=== PATIENT | male | born 1970 | race Caucasian/White ===

== ENCOUNTER 2019-06-25 22:48 | Observation (INO) ==
[2019-06-25] MEDS ORDERED: 0.9 % Sodium Chloride 1,000 ML IVC ONE (23:11)
[2019-06-25] MEDS ORDERED: Isovue-370 500 ML BOTTLE IVP ONE (23:11)
[2019-06-25] MEDS ORDERED: Ondansetron 4 MG/2 ML VIAL IVP ONE (23:11)
[2019-06-25 23:45] LABS: Basophils % 0.5 %; Hematocrit 34.7 % (37.5-50.1); Hemoglobin 12.6 g/dL (12.9-16.9); Lymphocytes # 0.5 K/mcL (0.6-4.6); Lymphocytes % 12.5 %; Mean Corpuscular HGB Conc 36.3 g/dL (31.6-35.5); Mean Corpuscular Hemoglobin 31.1 pg (28.0-33.3); Mean Corpuscular Volume 85.7 fL (83.0-100.0); Mean Platelet Volume 9.5 fL (9.4-12.4); Monocytes # 0.9 K/mcL (0.0-1.3); Monocytes % 21.7 %; Neutrophils # 2.5 K/mcL (1.6-8.9); Platelet Count 120 K/mcL (140-400); Red Blood Count 4.05 M/mcL (4.19-5.50); Red Cell Distribution Width 13.8 % (11.5-14.5); Segmented Neutrophils % 64.3 %; White Blood Count 3.9 K/mcL (4.3-11.1)
[2019-06-26 00:16] LABS: Platelet Estimate Normal (Normal)
[2019-06-26 00:27] LABS: Alanine Aminotransferase 18 Units/L (7-52); Albumin 4.1 g/dL (3.5-5.7); Albumin/Globulin Ratio 1.6 (1.1-2.2); Alkaline Phosphatase 73 Units/L (34-104); Aspartate Amino Transferase 17 Units/L (13-39); BUN/Creatinine Ratio 25 (6-26); Bilirubin,Total 0.5 mg/dL (0.3-1.0); Blood Urea Nitrogen 18 mg/dL (6-20); Calcium 9.4 mg/dL (8.6-10.3); Carbon Dioxide 24 mEq/L (23-29); Chloride 101 mEq/L (98-107); Globulin 2.6 g/dL (2.4-3.5); Glucose 124 mg/dL (70-105); Lipase 19 Units/L (11-82); Osmolality,Calculated 281 (280-300); Potassium 4.2 mEq/L (3.5-5.1); Sodium 134 mEq/L (136-145); Total Protein 6.7 g/dL (6.4-8.9); eGFR For African Americans > 60 (> 60); eGFR For Non-African Americans > 60 (> 60)
[2019-06-26 00:41] LABS: Bilirubin,Urine Negative (Negative); Blood,Urine Negative (Negative); Clarity,Urine Clear (Clear); Color,Urine Dark Yellow (Yellow); Glucose,Urine (UA) Normal (Normal); Ketones,Urine Trace mg/dL (Negative); Leukocyte Esterase,Urine Negative (Negative); Nitrite,Urine Negative (Negative); PH,Urine 5.5 pH Units (5.0-8.0); Protein,Urine Trace mg/dL (Neg-Trace); Specific Gravity,Urine > 1.030 (1.010-1.025); Urobilinogen,Urine Normal (Normal)
[2019-06-26] MEDS ORDERED: *HR* FentaNYL (PF) 100 MCG/2 ML VIAL IVP ONE (00:51)
[2019-06-26] MEDS ORDERED: Naloxone 0.4 MG/ML INJ IVP PRN (01:48)
[2019-06-26] MEDS ORDERED: 0.9 % Sodium Chloride 1,000 ML IVC SCH (02:30)
[2019-06-26] MEDS ORDERED: Metoclopramide 10 MG/2 ML VIAL IVP PRN (02:33)
[2019-06-26 02:58] LABS: Albumin/Globulin Ratio 1.7 (1.1-2.2); Bilirubin,Direct 0.1 mg/dL (0.0-0.2); Bilirubin,Indirect 0.3 mg/dL (0.0-1.0); Bilirubin,Total 0.4 mg/dL (0.3-1.0); Globulin 2.4 g/dL (2.4-3.5); Total Protein 6.4 g/dL (6.4-8.9)
[2019-06-26] MEDS: Pantoprazole 40 MG VIAL IVP SCH (11:47)
[2019-06-26] MEDS ORDERED: MOM Conc 10 ML UD.LIQ PO PRN (14:59)
[2019-06-26] MEDS ORDERED: Ondansetron ODT 4 MG TAB.RAPDIS PO PRN (14:59)
[2019-06-26] MEDS ORDERED: dexAMETHasone 4 MG TABLET PO SCH (15:00)
[2019-06-26] MEDS ORDERED: *HR* HYDROcodone/Acet 10/325 mg TABLET GTUBE SCH (15:15)
[2019-06-26] MEDS ORDERED: Fluconazole 40 MG/ML UDC PO ONE (16:00)
[2019-06-26] MEDS ORDERED: Fluconazole 40 MG/ML UDC PO SCH (16:00)
[2019-06-26] MEDS: *HR* Enoxaparin 40 MG/0.4 ML SYRINGE SQ SCH (16:52)
[2019-06-26] MEDS: *HR* HYDROcodone/Acet 10/325 mg TABLET PO SCH ×2 (16:53→23:47)
[2019-06-26] MEDS: Metoclopramide 10 MG/10 ML UD.LIQ PO SCH (18:20)
[2019-06-26] MEDS: Magic Mouthwash 10 ML UD Cup PO PRN (18:20)
[2019-06-27] MEDS: Magic Mouthwash 10 ML UD Cup PO PRN (01:05)
[2019-06-27 04:53] LABS: Basophils % 0.4 %; Hematocrit 31.5 % (37.5-50.1); Hemoglobin 11.1 g/dL (12.9-16.9); Mean Corpuscular HGB Conc 35.2 g/dL (31.6-35.5); Mean Platelet Volume 9.3 fL (9.4-12.4)
[2019-06-27 04:55] LABS: Eosinophils # 0.1 K/mcL (0.0-0.6); Eosinophils % 2.1 %; Immature Platelets 1.8 % (1.1-6.1); Lymphocytes # 0.6 K/mcL (0.6-4.6); Lymphocytes % 24.7 %; Mean Corpuscular Hemoglobin 30.9 pg (28.0-33.3); Mean Corpuscular Volume 87.7 fL (83.0-100.0); Monocytes # 0.6 K/mcL (0.0-1.3); Monocytes % 23.8 %; Neutrophils # 1.2 K/mcL (1.6-8.9); Platelet Count 103 K/mcL (140-400); Red Blood Count 3.59 M/mcL (4.19-5.50); White Blood Count 2.4 K/mcL (4.3-11.1)
[2019-06-27 05:11] LABS: BUN/Creatinine Ratio 16 (6-26); Blood Urea Nitrogen 11 mg/dL (6-20); Calcium 9.1 mg/dL (8.6-10.3); Carbon Dioxide 28 mEq/L (23-29); Chloride 105 mEq/L (98-107); Glucose 84 mg/dL (70-105); Osmolality,Calculated 287 (280-300); Potassium 4.4 mEq/L (3.5-5.1); Sodium 139 mEq/L (136-145); eGFR For African Americans > 60 (> 60); eGFR For Non-African Americans > 60 (> 60)
[2019-06-27 05:35] LABS: Platelet Estimate Slight Decrease (Normal)
[2019-06-27] MEDS: *HR* Enoxaparin 40 MG/0.4 ML SYRINGE SQ SCH (05:58)
[2019-06-27] MEDS: *HR* HYDROcodone/Acet 10/325 mg TABLET PO SCH ×2 (06:05→08:33)
[2019-06-27] MEDS: Metoclopramide 10 MG/10 ML UD.LIQ PO SCH (08:33)
[2019-06-27] MEDS: Pantoprazole 40 MG VIAL IVP SCH (08:33)
[2019-06-27 10:17] VITALS: BP 123/76
[2019-06-27] MEDS ORDERED: Fluconazole 100 MG TABLET PO SCH (16:00)
== END 2019-06-27 10:27 | disposition home health service (06) ==
LOC: EMEROOARM 22:48 → 3ANU 22:48
PROVIDERS: ADMIT Student in an Organized Health Care Education/Training Program; ATTEND Student in an Organized Health Care Education/Training Program